=== PATIENT | female | born 1990 | race Caucasian/White ===

== ENCOUNTER 2019-03-11 20:37 | Inpatient (IN) | payer MEDICAID, OTHER ==
[~2019-03-11] VITALS: Ht 154.9 cm; Wt 63.3 kg
[2019-03-11] MEDS ORDERED: ONDANSETRON ODT 8 MG ONE (20:43)
--- NOTE | 2019-03-11 20:44 | NUR ---
ODT ZOFRAN 8MG IN TRIAGE
[2019-03-11] MEDS ORDERED: ONDANSETRON ODT 4 MG PO ONE (21:00)
[2019-03-11] MEDS ORDERED: SODIUM CHLORIDE FLUSH 10ML SYR IVF ONE (21:00)
[2019-03-11 21:04] LABS: MEAN CORPUSCULAR HEMOGLOBIN 32.1 pg (27.0-34.8); MEAN CORPUSCULAR HGB CONC 33.7 g/dL (32.4-35.8); MEAN CORPUSCULAR VOLUME 95.3 fL (80-100); MEAN PLATELET VOLUME 9.1 fL (7.4-10.4); PLATELET COUNT 168 x10^3/uL (130-400); RED BLOOD COUNT 4.44 x10^6/uL (3.82-5.3); RED CELL DISTRIBUTION WIDTH 12.3 % (9.6-15.2)
[2019-03-11 21:15] LABS: ALANINE AMINOTRANSFERASE 31 U/L (12-78); ALBUMIN 3.4 g/dL (3.4-5.0); ANION GAP 7 mmol/L (5-15); CALCIUM 8.3 mg/dL (8.5-10.1); CHLORIDE 106 mmol/L (98-107); CREATININE 0.82 mg/dL (0.55-1.02)
[2019-03-11 21:19] LABS: ALKALINE PHOSPHATASE 79 U/L (45-117); BILIRUBIN,TOTAL 0.6 mg/dL (0.2-1.0); TOTAL PROTEIN 7.4 g/dL (6.4-8.2)
--- NOTE | 2019-03-11 21:39 | NUR ---
PROCESS PROJECT ENGINEER AT BEDSIDE TO ASSESS PT
[2019-03-11] MEDS ORDERED: SODIUM CHLORIDE 0.9% 1,000ML IVBOLUS ONE ×2 (22:00→23:00)
[2019-03-11] MEDS ORDERED: KETOROLAC 30 MG/1 ML IVPush ONE (22:00)
--- NOTE | 2019-03-11 22:00 | NUR ---
XRAY AT BEDSIDE FOR CHEST XRAY
--- NOTE | 2019-03-11 22:04 | NUR ---
PT RESTING ON GURNEY WITH DAUGHTER. BOLUS STARTED, NADN CALL LIGHT WITHIN REACH.
[2019-03-11 22:10] LABS: RAPID INFLUENZA A Negative (Negative); RAPID INFLUENZA B Negative (Negative)
[2019-03-11] MEDS ORDERED: KETOROLAC 30 MG/1 ML ONE (22:13)
[2019-03-11 22:16] LABS: MD YES
[2019-03-11 22:20] LABS: BANDS%(MANUAL) 25 % (0-7); LYMPH#(MANUAL) 1.08 x10^3/uL (1-3.4); LYMPHS% (MANUAL) 6 % (22-44); MONOS#(MANUAL) 0.18 x10^3/uL (0.3-2.7); MONOS% (MANUAL) 1 % (2-9); SEG#(MANUAL) 12.24 x10^3/uL (1.8-6.8); SEGS% (MANUAL) 68 % (42-75)
[2019-03-11 22:21] LABS: <PLATELET ESTIMATE> ADEQUATE; <PLT MORPHOLOGY> NORMAL PLT MORPH; <RBC MORPHOLOGY> NORMAL
--- NOTE | 2019-03-11 22:22 | NUR ---
ALL RESULTS BACK AT THIS TIME CHART UP FOR RECHECK
--- NOTE | 2019-03-11 22:35 | NUR ---
AT BEDSIDE TO REASSESS PT AND DISCUSS POC
--- NOTE | 2019-03-11 22:48 | NUR ---
2ND BOLUS STARTED PER MD AT THIS TIME.
[2019-03-11] MEDS ORDERED: CEFTRIAXONE PMX 1GM/50ML 50 ML ONE (22:50)
[2019-03-11] MEDS ORDERED: ACETAMINOPHEN 500 MG TABLET PO ONE (23:00)
[2019-03-11] MEDS ORDERED: AZITHROMYCIN 500 MG in SODIUM CHLORIDE 0.9% 250 ML IV ONE (23:00)
[2019-03-11] MEDS ORDERED: CEFTRIAXONE PMX 1GM/50ML 50 ML IVPB ONE (23:00)
--- NOTE | 2019-03-11 23:12 | NUR ---
HOSPITALIST AT BEDSIDE TO ADMIT PT
[2019-03-11] MEDS ORDERED: ACETAMINOPHEN 325 MG TABLET PO PRN (23:30)
[2019-03-11] MEDS ORDERED: CEFTRIAXONE PMX 1GM/50ML 50 ML IV SCH (23:30)
[2019-03-11] MEDS ORDERED: AZITHROMYCIN 500 MG in SODIUM CHLORIDE 0.9% 250 ML IV SCH (23:30)
[2019-03-11] MEDS ORDERED: POTASSIUM CHLORIDE 40 MEQ in SODIUM CHLORIDE 0.9% 500 ML IV ONE (23:30)
[2019-03-11] MEDS ORDERED: ONDANSETRON 2MG/ML, 2ML IVPush PRN (23:30)
[2019-03-11] MEDS: SODIUM CHLORIDE 0.9% 1,000 ML IV SCH (23:58)
[2019-03-12 01:15] VITALS: BP 95/64
[2019-03-12 05:16] LABS: MEAN CORPUSCULAR HEMOGLOBIN 32.2 pg (27.0-34.8); MEAN CORPUSCULAR HGB CONC 33.4 g/dL (32.4-35.8); MEAN CORPUSCULAR VOLUME 96.4 fL (80-100); PLATELET COUNT 143 x10^3/uL (130-400); RED BLOOD COUNT 3.82 x10^6/uL (3.82-5.3); RED CELL DISTRIBUTION WIDTH 12.3 % (9.6-15.2)
[2019-03-12 05:27] LABS: ANION GAP 6 mmol/L (5-15); CALCIUM 7.4 mg/dL (8.5-10.1); CHLORIDE 113 mmol/L (98-107)
[2019-03-12 05:28] LABS: CREATININE 0.79 mg/dL (0.55-1.02)
[2019-03-12 05:38] LABS: MD YES
[2019-03-12 05:39] LABS: <PLATELET ESTIMATE> ADEQUATE; <PLT MORPHOLOGY> NORMAL PLT MORPH; <RBC MORPHOLOGY> NORMAL; BAND#(MANUAL) 2.45 x10^3/uL; BANDS%(MANUAL) 11 % (0-7); LYMPH#(MANUAL) 0.67 x10^3/uL (1-3.4); LYMPHS% (MANUAL) 3 % (22-44); MONOS#(MANUAL) 1.12 x10^3/uL (0.3-2.7); MONOS% (MANUAL) 5 % (2-9); SEG#(MANUAL) 18.06 x10^3/uL (1.8-6.8); SEGS% (MANUAL) 81 % (42-75)
[2019-03-12 07:21] VITALS: BP 95/67
[2019-03-12] MEDS: SODIUM CHLORIDE 0.9% 1,000 ML IV SCH ×2 (07:45→21:45)
[2019-03-12] MEDS: ENOXAPARIN 40 MG/0.4 ML SQ SCH (07:45)
[2019-03-12 08:19] LABS: AMPHETAMINE SCREEN, URINE Negative (Negative); BARBITURATE SCREEN, URINE Negative (Negative); BENZODIAZEPINE SCREEN, URINE Negative (Negative); CANNABINOID SCREEN, URINE Positive (Negative); COCAINE SCREEN, URINE Positive (Negative); METHADONE SCREEN, URINE Negative (Negative); OPIATE SCREEN, URINE Negative (Negative)
[2019-03-12 12:59] VITALS: BP 86/51
[2019-03-12 13:06] VITALS: BP 99/68
[2019-03-12] MEDS: IBUPROFEN 200 MG TABLET PO PRN (17:48)
[2019-03-12 19:07] VITALS: BP 111/78
[2019-03-13 04:29] VITALS: BP 97/56
[2019-03-13] MEDS: IBUPROFEN 200 MG TABLET PO PRN (07:57)
[2019-03-13 08:00] VITALS: BP 106/65
[2019-03-13] MEDS: ENOXAPARIN 40 MG/0.4 ML SQ SCH (09:00)
[2019-03-13] MEDS ORDERED: CEFD300C37 PO (11:45)
[2019-03-13] MEDS ORDERED: AZIT500T10 PO (11:45)
[2019-03-13] MEDS ORDERED: IBUP-1902 PO (11:45)
[2019-03-13 12:39] LABS: BASOPHILS # (AUTO) 0.03 x10^3/uL (0-0.1); BASOPHILS % (AUTO) 0 % (0-1); EOSINOPHILS # (AUTO) 0.08 x10^3/uL (0-0.4); EOSINOPHILS % (AUTO) 1 % (1-7); HEMOGRAM NOTE RECHECKED; LYMPHOCYTES # (AUTO) 2.56 x10^3/uL (1-3.4); LYMPHOCYTES % (AUTO) 21 % (22-44); MD NO; MEAN CORPUSCULAR HEMOGLOBIN 32.2 pg (27.0-34.8); MEAN CORPUSCULAR HGB CONC 33.3 g/dL (32.4-35.8); MEAN CORPUSCULAR VOLUME 96.7 fL (80-100); MEAN PLATELET VOLUME 10.1 fL (7.4-10.4); MONOCYTES # (AUTO) 0.65 x10^3/uL (0.2-0.8); MONOCYTES % (AUTO) 5 % (2-9); NEUTROPHILS # (AUTO) 8.89 x10^3/uL (1.8-6.8); NEUTROPHILS % (AUTO) 73 % (42-75); PLATELET COUNT 198 x10^3/uL (130-400); RED BLOOD COUNT 3.92 x10^6/uL (3.82-5.3); RED CELL DISTRIBUTION WIDTH 12.5 % (9.6-15.2)
[2019-03-13 13:02] VITALS: BP 117/82
== END 2019-03-13 14:36 | disposition home or self-care (01) | DRG 195 ==
LOC: ED 22:48 → 4NW 23:42 → DCLOUNGE 03-13 14:30
PROVIDERS: ADMIT Family Medicine; ATTEND Internal Medicine
DX: J15.9 Unspecified bacterial pneumonia (principal); E87.6 Hypokalemia; F12.90 Cannabis use, unspecified, uncomplicated; F14.10 Cocaine abuse, uncomplicated; K29.00 Acute gastritis without bleeding; D72.825 Bandemia
CPT/HCPCS: 36415; 71045; 80048; 80053; 80307; 83605; 84703; 85025; 87040; 87400; 96361; 96374; 96375; G0378; J0456; J0696; J1650; J1885; J3480; Q0162; J7030; J7040; J7050

== ENCOUNTER 2019-04-17 13:19 | Emergency (ER) | payer MEDICAID, OTHER ==
[~2019-04-17] VITALS: Ht 154.9 cm; Wt 56.9 kg
[~2019-04-17 13:19] MED LIST: AZIT500T10 PO; CEFD300C37 PO; IBUP-1902 PO
[2019-04-17 13:40] VITALS: BP 115/50
--- NOTE | 2019-04-17 14:02 | NUR ---
FIRST CONTACT WITH PT. PT C/O BODY ACHES X 2 DAYS WITH COUGH. PT'S AOX4. RESPS EVEN AND UNLABORED. PA AT BEDSIDE TO EVALUATE AT THIS TIME.
--- NOTE | 2019-04-17 15:29 | NUR ---
Patient given discharge instructions and they have confirmed that they understand the instructions. Patient ambulatory with steady gait.
== END 2019-04-17 15:43 | disposition home or self-care (01) ==
LOC: ED 15:35
DX: J10.1 Influenza due to other identified influenza virus with other respiratory manifestations (principal); F17.200 Nicotine dependence, unspecified, uncomplicated
CPT/HCPCS: 71046; 99283

== ENCOUNTER 2020-02-04 10:05 | Emergency (ER) | payer MEDICAID ==
[~2020-02-04] VITALS: Ht 154.9 cm; Wt 72.7 kg
[2020-02-04 10:18] VITALS: BP 133/90
--- NOTE | 2020-02-04 10:58 | NUR ---
bone wax given to pt with instructions.
== END 2020-02-04 11:25 | disposition home or self-care (01) ==
LOC: ED 10:30
DX: K08.89 Other specified disorders of teeth and supporting structures (principal); M79.89 Other specified soft tissue disorders
CPT/HCPCS: 99283